=== PATIENT | female | born 1950 | race Two or more races ===

== ENCOUNTER 2017-12-28 10:02 | Outpatient (CLI) | payer MEDICARE, BC | END 2017-12-28 23:59 | disposition home health service (06) | LOC: WOU 10:02 | PROVIDERS: ATTEND Specialist | DX: L59.8 Other specified disorders of the skin and subcutaneous tissue related to radiation (principal); C49.9 Malignant neoplasm of connective and soft tissue, unspecified; T81.31XD Disruption of external operation (surgical) wound, not elsewhere classified, subsequent encounter; E11.9 Type 2 diabetes mellitus without complications; Z79.84 Long term (current) use of oral hypoglycemic drugs | CPT/HCPCS: A6210; A6402; G0463 ==

== ENCOUNTER 2018-02-15 08:00 | Outpatient (CLI) | payer MEDICARE, BC | END 2018-02-15 23:59 | disposition home health service (06) | LOC: WOU 08:00 | PROVIDERS: ATTEND Specialist | DX: L59.8 Other specified disorders of the skin and subcutaneous tissue related to radiation (principal); T81.31XA Disruption of external operation (surgical) wound, not elsewhere classified, initial encounter; E11.9 Type 2 diabetes mellitus without complications; Z79.84 Long term (current) use of oral hypoglycemic drugs | CPT/HCPCS: G0463; Z7610 ==

== ENCOUNTER 2023-01-05 10:32 | Outpatient (CLI) | payer MEDICARE, BC ==
[2023-01-05] MEDS ORDERED: COLLAGENASE 5 GM TUBE UD TP ONE (11:12)
[2023-01-05] MEDS ORDERED: Z GUARD REMEDY 4 OZ OINT TP ONE (11:12)
== END 2023-01-05 23:59 | disposition home or self-care (01) ==
LOC: WOU 10:32
PROVIDERS: ATTEND Specialist
DX: L59.9 Disorder of the skin and subcutaneous tissue related to radiation, unspecified (principal); C49.9 Malignant neoplasm of connective and soft tissue, unspecified; E11.9 Type 2 diabetes mellitus without complications; Z79.84 Long term (current) use of oral hypoglycemic drugs
CPT/HCPCS: G0463